=== PATIENT | female | born 1995 | race Caucasian/White ===

== ENCOUNTER → 2018-11-27 | Outpatient (CLI) | payer OTHER, MEDICAID ==
[~2018-11-27] MED LIST: ABILIFY PO; FLUOXETINE PO; PROZ20CA PO; PROZ40CA PO
--- NOTE | 2018-11-27 17:29 | REP ---
MRI RIGHT HAND: TECHNIQUE: Multiple sequences obtained in the axial, coronal and sagittal planes. There is a palpable lump posteriorly. At the site of the palpable lump is an elongated cystic structure consistent with a ganglion cyst. It measures approximately 26 x 9 x 13 mm. There are a few thin septations within the inferior aspect of the cyst. Inferior aspect is posterior to the capitate bone. The cystic extends distally deep and between the extensor tendons of the hand. More distally it is superficial to the extensor tendons. Distal aspect is posterior to the base of the third metacarpal. No other cyst is seen in the visualized portions of the hand. The visualized osseous structures demonstrate normal marrow signal. Triangular fibrocartilage cartilage appears intact. Scapula lunate and lunatotriquetral ligaments are intact. Visualized flexor and extensor tendons are intact. IMPRESSION: Dorsal ganglion cyst extends from the posterior aspect of the capitate bone distally to the posterior base of the third metacarpal. I see no other significant abnormalities. Electronically Signed by Galo Almeida MD 12/03/2018 11:16 P
== END ==
LOC: M PLARAD 14:32
PROVIDERS: ATTEND Orthopaedic Surgery Sports Medicine
DX: M67.441 Ganglion, right hand (principal)

== ENCOUNTER 2018-12-23 07:57 | Day surgery (SDC) | payer OTHER, MEDICAID ==
[~2018-12-23] VITALS: Ht 157.5 cm; Wt 46.3 kg
[~2018-12-23 07:57] MED LIST changes: +JENC0.35 PO; +LR 1,000 ML IV ONE; +PRENTAB29 PO; +VITA100067 PO
[2018-12-23] MEDS ORDERED: MIDAZOLAM INJ 2 MG/2 ML VIAL (J2250) As Ordered ONE (08:08)
[2018-12-23] MEDS ORDERED: fentaNYL 100 MCG/2 ML INJECTION (J3010) As Ordered ONE (08:08)
[2018-12-23] MEDS ORDERED: LIDOCAINE 2% INJ 100 MG/5 ML SDV (FOR ANES.) As Ordered ONE (08:08)
[2018-12-23] MEDS ORDERED: PROPOFOL 200 MG/20 ML VIAL As Ordered ONE (08:08)
[2018-12-23] MEDS ORDERED: ONDANSETRON 4MG/2ML VIAL (J2405) As Ordered ONE (08:08)
[2018-12-23] MEDS ORDERED: dexameTHASONE 4 MG/ML 1ML VIAL (J1100) As Ordered ONE (08:12)
[2018-12-23 08:42] LABS: URINE PREG TEST NEGATIVE (NEGATIVE)
[2018-12-23] MEDS ORDERED: BUPIVACAINE HCL 0.5% 30 ML VIAL As Ordered ONE (09:30)
[2018-12-23] MEDS ORDERED: ePHEDrine SULFATE 25 MG/5 ML(5MG/ML) SYRINGE As Ordered ONE (10:31)
[2018-12-23] MEDS ORDERED: PERCOCET 5MG/325MG TAB As Ordered ONE (10:58)
[2018-12-23] MEDS ORDERED: ONDANSETRON 4MG/2ML VIAL (J2405) IV PRN ×2 (11:00→11:15)
[2018-12-23] MEDS ORDERED: PERCOCET 5MG/325MG TAB PO PRN ×2 (11:00)
[2018-12-23] MEDS ORDERED: LR 1,000 ML IV SCH ×2 (11:00)
[2018-12-23] MEDS ORDERED: fentaNYL 100 MCG/2 ML INJECTION (J3010) IV PRN (11:00)
[2018-12-23] MEDS ORDERED: MORPHINE 4 MG/ML 1ML VIAL/SYRINGE (J2270) IV PRN (11:15)
[2018-12-23] MEDS ORDERED: ONDANSETRON 4 MG TAB (S0181) PO PRN (11:15)
--- NOTE | 2018-12-23 11:20 | RO ---
DATE OF PROCEDURE: 12/23/2018 PREOPERATIVE DIAGNOSIS: Right wrist ganglion cyst. POSTOPERATIVE DIAGNOSIS: Right wrist ganglion cyst. PLANNED PROCEDURE: Excision right wrist dorsal ganglion cyst. PROCEDURE PERFORMED: Excision right wrist dorsal ganglion cyst. SURGEON: Poncho Mills MD BOX [employer]KER PAPERBOARD: ANESTHESIA: General. MOSAIC TILER: Dr. Izaguirre OPERATIVE FINDINGS: A 3 x 3 cm longitudinally x 1 cm in diameter cyst with communication to the base of the third metacarpal was excised. This had old blood/mucous inside of it. 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 This appeared to communicate with the base of the third metacarpal capitate joint on MRI. I discussed the pros and cons, risks and benefits of proceeding with cyst excision, including, but not limited to, cyst recurrence, pain, stiffness, instability of the wrist, neurovascular injury and infection. She still wished to go ahead so we proceeded with the case. DESCRIPTION OF PROCEDURE: Patient was brought to the operating theater and placed supine on the operating room table. A hand table was placed on the right. General anesthetic was induced. 2 grams of IV Ancef was administered. The right arm was prepped and draped in the usual sterile fashion. An 18 inch tourniquet was applied to the right upper extremity and inflated to 250 mmHg and taken down prior to the end of the case. The cyst was obvious overlying the third metacarpal. I exsanguinated the wrist and forearm with esmarch and then inflated the tourniquet. I made a 1-1/2 inch incision centered over the dorsum of the third metacarpal just off to one side of the bone. I carried this dissection down through skin and subcutaneous tissue. I identified the cyst. I identified the extensor indicus proprius (EIP) tendon and extensor carpi radialis brevis (ECRB) tendon as well on the radial side. I kept these protected throughout the case. There was a number of small vessels that I also protected going in and around the cyst. I thoroughly dissected around the cyst. I found the stalk, I dissected this out. It was indeed at the base of the third metacarpal. I did have one small hole in the proximal radial aspect of the cyst. This did leak mucous/old blood appearing fluid. I finished the rest of the cyst excision while keeping the tendons in continuity. This came nicely off the dorsum of the third metacarpal. We sent this for pathology in formalin solution. I thoroughly irrigated the wound. I took down the tourniquet. I made sure to achieve meticulous hemostasis. I closed the subcutaneous tissue with interrupted #3-0 Vicryl sutures and then the skin with horizontal mattress #3-0 Ethilon sutures. I placed three of these in the skin. I covered up the wound with Adaptic 4 x 8 gauze and then sterile Jean dressing and then overwrapped that with a lightly wrapped ALEKS bandage. The patient was woken up from general anesthetic, transferred off the operating room table and taken to the postanesthesia care unit (PACU) in stable condition. All sponge, needle, and instrument counts were correct. COMPLICATIONS: There were no complications associated with the procedure. ESTIMATED BLOOD LOSS: 10 mL or less. PLAN: The patient is to be discharged home when they are comfortable according to day surgery criteria. They can start some gentle range of motion of the hand and wrist. I will see them back in three days time.
[2018-12-23 12:05] VITALS: BP 106/67
== END 2018-12-23 12:25 | disposition home or self-care (01) ==
LOC: M SDC 07:57
PROVIDERS: ATTEND Orthopaedic Surgery Sports Medicine
DX: M67.431 Ganglion, right wrist (principal); F41.9 Anxiety disorder, unspecified; F32.9 Major depressive disorder, single episode, unspecified; G40.909 Epilepsy, unspecified, not intractable, without status epilepticus; Z79.899 Other long term (current) drug therapy
CPT/HCPCS: 25111; 84703; 88304; J0690; J1100; J2250; J2405; J3010